=== PATIENT | male | born 1950 | race Caucasian/White ===

== ENCOUNTER 2024-12-15 06:20 | Day surgery (SDC) | payer OTHER, SELFPAY ==
[2024-12-14 08:05] VITALS: BMI 50.7
[2024-12-14 09:10] LABS: Alanine Aminotransferase 25 U/L (10-49); Albumin, Serum 4.9 gm/dL (3.4-4.8); Albumin/Globulin Ratio 1.8 (1.2-2.2); Alkaline Phosphatase 130 U/L (46-116); Anion Gap 10 (7-16); Aspartate Amino Transferase 20 U/L (0-34); BUN/Creatinine Ratio 23 Ratio (12-20); Bilirubin,Total 0.6 mg/dL (0.3-1.2); Blood Urea Nitrogen 25 mg/dL (9-23); Calcium 9.7 mg/dL (8.3-10.6); Calcium (Corrected) 9.7 mg/dL (8.5-10.1); Carbon Dioxide 28.8 mMol/L (20.0-31.0); Chloride 103 mMol/L (98-107); Creatinine (Component) 1.1 mg/dL (0.6-1.3); Estimated Creatinine Clearance 85.9 mL/min (>60); Globulin 2.7 gm/dL (2.3-3.5); Glucose 121 mg/dL (74-106); Osmolality,Calculated 288 (275-295); Potassium 4.4 mMol/L (3.4-5.1); Sodium 142 mMol/L (136-145); Total Protein 7.6 gm/dL (5.7-8.2); eGFR > 60 See Note
--- NOTE | 2024-12-14 14:49 | SUR.PREOP ---
Pt notified to come in at 0630 tomorrow for surgery.
[2024-12-15] VITALS (7 sets, daily range): BP systolic 141–180; BP diastolic 89–98; PULSE 86–98; RESP 12–20; TEMP 36.1–36.3; O2SAT 94–100
--- NOTE | 2024-12-15 11:20 | PD.SUROPNT ---
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 The tympanic membrane was intact. The middle ear had mucosal adhesions but no signs of acute infection or cholesteatoma. The mastoid cavity had significant sclerotic changes and it was hypoplastic with an anteriorly displaced sigmoid sinus. It was difficult to ascertain the acicular chain status but on preop audiometric testing it showed it to be intact. Procedure Description Indications: This is a 74-year-old male with persistent draining ear CT findings consistent with chronic mastoiditis and hearing loss as mentioned above. Been treated extensively medically with oral and topical antibiotics and has had cotton removed from the canal previously as well. He continued to have the infections and wished to proceed with surgical intervention. The risk of bleeding infection hearing loss dizziness tinnitus decreased sense of taste facial nerve paralysis and potential need for further surgery were all discussed with him. Anticipated outcomes were discussed as well. Patient is aware the primary goal of the surgery is to remove the infection. The patient was marked and shaved in the preoperative setting then transferred to the operative suite where he was anesthetized intubated. Facial nerve monitoring electrodes were placed in usual fashion for the right ear and the patient was sterilely prepped and draped. Timeout was performed. The external canal was irrigated with warm saline solution and suction. The canal was injected with 1% lidocaine with 1-100,000 dilution epinephrine. Postauricular area was injected as well. Approximately 6 cc total were used. Tympanomeatal flap was created the tympanic membrane was turned forward. The chorda tympani nerve was identified as well as the malleus incudostapedial joint was difficult to visualize due to the small canal size. There were no signs of acute infection or cholesteatoma. The drum was turned back to its normal position. We then proceeded with a postauricular incision and elevation of a palva flap. The tissue was very scarred down to the underlying bone. Standard canal wall up mastoidectomy was performed. As mentioned the bone was very sclerotic with minimal air cells until deep into the cortex. There is minimal mucosal disease and into the air cells that were visualized just a few in the aditus region. At this point it did not seem necessary to drill any deeper since the aditus region was opened up and the air cells inferiorly were healthy. The facial nerve was tested but was deep to the depth of the range of the nerve stimulator. Mastoid cavity was irrigated with saline solution and suction. The postauricular incision was closed in a multilayer fashion with 4-0 Vicryl and Dermabond. Surgifoam dipped in saline was packed on top of the tympanic membrane and the tympanomeatal flap. Mupirocin antibiotic ointment was then placed on that. The external meatus was packed with Adaptic and a sterile cottonball. The patient was awakened and taken to the recovery room in stable condition Anesthesia GETA Pathology / specimen None Estimated Blood Loss 10 Surgeon Shantanu Hernandez DO Surgical Staff Operation Date: 12/15/24 08:45 Case Staff Anesthesiologist: Fidencio Ortega
--- NOTE | 2024-12-15 11:33 | SUR.PHASEI ---
pt received from OR in recover bay 5. pt asleep but responds to voice, breathing unlabored on oxymask 10l. v/s stable. pt dressing to right ear cdi. report received from Dr. Ortega and Anastacio Sanchez.
--- NOTE | 2024-12-15 12:11 | SUR.PHASEII ---
pt able to tolerate oral fluids without difficulty swallowing or nausea/vomiting.
--- NOTE | 2024-12-15 12:47 | SUR.PHASEII ---
pt awake and alert, breathing unlabored on room air. v/s stable. pt dressing to right ear cdi. pt able to ambulate to wheelchair with steady gait. d/c instructions given with ex Elyssa and daughter in room, all questions answered. pt d/c via wheelchair with all belongings.
== END 2024-12-15 12:47 | disposition home or self-care (01) ==
PROVIDERS: Anesthesiology; PCP Family Medicine; Referring Provider Otolaryngology; Visit Provider Otolaryngology
PROC: (CPT 69641; principal; 2024-12-15 08:30)
DX: H90.8 Mixed conductive and sensorineural hearing loss, unspecified (principal); H70.11 Chronic mastoiditis, right ear; T16.1XXA Foreign body in right ear, initial encounter; W44.9XXA Unspecified foreign body entering into or through a natural orifice, initial encounter
CPT/HCPCS: 69205; 69644; 36415; 80053; A4217; A4649; J0171; J0690; J1100; J1885; J2250; J2371; J2405; J2704; J3010; J3473; J3490; J7040; A9270